=== PATIENT | female | born 1965 | race African-American/Black ===

== ENCOUNTER 2018-11-29 19:24 | Emergency (ER) | payer SELFPAY, OTHER ==
[2018-11-29] MEDS: BACITRACIN 0.9 GM OINT TOP (22:04)
[2018-11-29] MEDS: IBUPROFEN 600 MG TAB PO (22:04)
[2018-11-29] MEDS: BACITRACIN 0.5%/ZINC 28.35 GM OINT TOP (22:13)
== END 2018-11-29 22:13 | disposition home or self-care (01) ==
LOC: FTE 19:24
DX: T22.211A Burn of second degree of right forearm, initial encounter (principal); J45.909 Unspecified asthma, uncomplicated; X98.2XXA Assault by hot fluids, initial encounter
CPT/HCPCS: 16020; 99283-25